=== PATIENT | male | born 1965 | race African-American/Black ===

== ENCOUNTER 2021-04-06 14:51 | Emergency (ER) | payer MEDICAID ==
[~2021-04-06] VITALS: Ht 177.8 cm; Wt 82.0 kg
[2021-04-06] MEDS ORDERED: NAPR-681 PO ×2 (15:59→17:12)
[2021-04-06] MEDS ORDERED: NASOI BOTHNSTRLS ×2 (15:59→17:12)
[2021-04-06 16:44] VITALS: BP 133/87
== END 2021-04-06 16:47 | disposition home or self-care (01) ==
LOC: ER 15:11
DX: F32.9 Major depressive disorder, single episode, unspecified (principal); M54.9 Dorsalgia, unspecified
CPT/HCPCS: 99283